=== PATIENT | male | born 1940 | race Caucasian/White ===

== ENCOUNTER 2016-12-13 17:46 | Emergency (ER) | payer MEDICARE, BC ==
[~2016-12-13] VITALS: Ht 170.2 cm; Wt 81.8 kg
[2016-12-13 17:53] VITALS: Ht 170.2 cm; Wt 81.8 kg
[2016-12-13] MEDS ORDERED: ALBUTEROL 0.5% (NEB) 2.5 MG/0.5 ML AMP INH STA ×2 (18:05→21:00)
[2016-12-13] MEDS ORDERED: SOD CHLORIDE 0.9% 1,000 ML IV STA (18:05)
[2016-12-13] MEDS ORDERED: METHYLPREDNISOLONE 125 MG INJ IV STA (18:05)
[2016-12-13] MEDS ORDERED: IPRATROPIUM (NEB) 0.5 MG/2.5 ML AMP INH STA (18:05)
[2016-12-13 19:14] LABS: ADD SCAN DIFF NO
[2016-12-13] MEDS ORDERED: ADV25050 INHALATION (19:17)
[2016-12-13] MEDS ORDERED: FURO20TA3 PO (19:17)
--- NOTE | 2016-12-13 19:20 | RADRPT ---
PROCEDURE: XR Chest. CLINICAL INDICATION: Asthma exacerbation. TECHNIQUE: Single frontal view of the chest was obtained COMPARISON: None FINDINGS: Cardiomegaly. Atherosclerotic calcifications in the thoracic aorta. Bilateral patchy lung base ate lectasis versus airspace disease with left pleural effusion. Left mid lung atelectasis. There is no pneumothorax. IMPRESSION: Cardiomegaly with mild failure and small left pleural effusion. RPTAT: [facility] Physician aSbino Date Time Electronically viewed and signed by Richard Beckwith Physician on 12/13/2016 19:20 RS/
[2016-12-13 19:22] LABS: BASOPHIL # 0.1 10^3/ul (0.0-0.1); BASOPHILS % 0.5 % (0.0-2.0); EOSINOPHILS # 0.3 10^3/ul (0.0-0.5); EOSINOPHILS % 2.4 % (0.0-7.0); HEMATOCRIT 43.2 % (42.0-52.0); HEMOGLOBIN 15.3 g/dl (14.0-18.0); LYMPHOCYTES # 2.5 10^3/ul (0.8-2.9); LYMPHOCYTES % 24.2 % (15.0-51.0); MEAN CORPUSCULAR HEMOGLOBIN 36.7 pg (29.0-33.0); MEAN CORPUSCULAR HGB CONC 35.4 g/dl (32.0-37.0); MEAN CORPUSCULAR VOLUME 103.6 fl (82.0-101.0); MONOCYTE # 0.9 10^3/ul (0.3-0.9); MONOCYTES % 8.8 % (0.0-11.0); NEUTROPHIL # 6.6 10^3/ul (1.6-7.5); NEUTROPHILS % 63.6 % (39.0-77.0); PLATELET COUNT 210 10^3/UL (140-415); RED BLOOD COUNT 4.17 10^6/ul (4.70-6.10); RED CELL DISTRIBUTION WIDTH 15.1 % (11.5-14.5); WHITE BLOOD COUNT 10.4 10^3/ul (4.8-10.8)
[2016-12-13 19:35] LABS: INR 1.51; PROTIME 18.3 Sec (12.2-14.2); PT RATIO 1.4
[2016-12-13 19:36] LABS: PARTIAL THROMBOPLASTIN TIME 37.6 Sec (25.0-35.0)
[2016-12-13 20:09] LABS: CHLORIDE 109 mmol/L (97-110)
[2016-12-13 20:10] LABS: ALBUMIN 2.5 g/dl (3.3-4.9); SODIUM 146 mmol/L (135-144)
[2016-12-13 20:11] LABS: POTASSIUM 4.3 mmol/L (3.5-5.1)
[2016-12-13 20:13] LABS: ALANINE AMINOTRANSFERASE 68 IU/L (13-69); ALKALINE PHOSPHATASE 136 IU/L (42-121); ANION GAP 13 (8-16); ASPARTATE AMINO TRANSFERASE 157 IU/L (15-46); BILIRUBIN,INDIRECT 0.8 mg/dl (0-1.1); BILIRUBIN,TOTAL 0.8 mg/dl (0.2-1.3); BLOOD UREA NITROGEN 15 mg/dl (7-20); CARBON DIOXIDE 28 mmol/L (21-31); CREATININE 0.61 mg/dl (0.61-1.24); GLUCOSE 98 mg/dl (70-220); TOTAL PROTEIN 6.4 g/dl (6.1-8.1)
[2016-12-13 20:30] LABS: TROPONIN-I < 0.012 ng/ml (0.00-0.12)
[2016-12-13 20:42] LABS: AADO2 Arterial 72.4 mmHg (7.0-24.0); Allen Test ACCEPTAB; Arterial Base Excess -2.5 mmol/L (-3.0-3); Arterial COHb 0.5 % (0.0-3.0); Arterial Fraction of Oxyhgb 92.6 % (93.0-99.0); Arterial HCO3 22.6 mmol/L (22.0-26.0); Arterial MetHb 0.5 % (0.0-1.5); Arterial Total Hemglobin 14.4 g/dl (12.0-18.0); MODE NASAL CANNULA
--- NOTE | 2016-12-13 22:04 | RADRPT ---
PROCEDURE: CT Head without contrast. CLINICAL INDICATION: Headaches TECHNIQUE: The study was performed utilizing a GE 64-slice multidetector CT scanner. Direct spiral axial CT images of the brain were obtained from the vertex to the skull base without contrast. The CTDI vol is 39.15 mGy and the DLP is 634.23 mGy-cm. The images were reviewed on a PACS workstation. COMPARISON: No prior studies are available for comparison. FINDINGS: Mild to moderate diffuse cerebral atrophy is seen with a compensatory ventricular enlargement. The leroy-white matter differentiation is maintained. No intra or extra-axial fluid collection or mass e ffect or shift in the midline structures is seen. The visualized paranasal sinuses, mastoid air hugh ls, orbits, and calvarium are unremarkable. IMPRESSION: 1. No acute intracranial pathology. 2. Mild to moderate diffuse cerebral volume loss. RPTAT: [facility] Physician Bryn Date Time Electronically viewed and signed by Physician Bryn on 12/13/2016 22:03 /
[2016-12-13 22:23] VITALS: BP 135/67; PULSE 110; RESP 22; TEMP 98.1
--- NOTE | 2016-12-13 22:39 | ERD ---
ER Documentation Chief Complaint Date/Time DATE: 12/13/16 TIME: 22:31 Chief Complaint BROUGHT IN VIA EMS DUE TO MULTIPLE MECHANICAL FALLS FOR THE LAST 3 DAYS HPI 76-year-old man brought in by EMS from home for recent trip and falls. Family members were later at the bedside and the patient himself states that for the last 3 days he has been falling more than usual, and has had difficulty getting up after the fall. He states he has been chronically losing strength both in his upper and lower extremities bilaterally. Patient does not usually leave the house and normally ambulates with assistance using either a cane or walker. 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 He denies recent head or neck injury, no paresthesias , no loss of bowel or bladder control, no chest pain, no headache or blurry vision. Patient also has a history of lung cancer and is post left upper lung surgery and is scheduled to see his contamination consultant tomorrow. He has a history of chronic obstructive pulmonary disease and uses bronchodilators daily around- the-clock. Patient denies dysphagia or slurred speech. ROS All systems reviewed and are negative except as per history of present illness. Medications Home Meds Reported Medications Salmeterol Xinaf/Fluticasone* (Advair*) 250-50 Diskus Inhaler, 1 INH INHALATION BID, #1 INHALER 12/13/16 Furosemide* (Furosemide*) 20 Mg Tablet, 20 MG PO DAILY, #60 TAB 12/13/16 Allergies Allergies: Coded Allergies: No Known Allergy (Unverified , 12/13/16) PMhx/Soc COPD, lung cancer, arthritis, dementia, chronic gait ataxia, hypertension, lumbar spine and disc disease Medical and Surgical Hx: pt denies Surgical Hx History of Surgery: No Anesthesia Reaction: No Hx Neurological Disorder: No Hx Respiratory Disorders: Yes (ASTHMA) Hx Cardiac Disorders: Yes (BORDERLINE HTN) Hx Psychiatric Problems: No Hx Miscellaneous Medical Probl: No Hx Alcohol Use: Yes Hx Substance Use: No Hx Tobacco Use: No Smoking Status: Former smoker FmHx Family History: No diabetes Physical Exam Vitals Vital Signs Date Time Temp Pulse Resp B/P Pulse Ox O2 Delivery O2 Flow Rate FiO2 12/13/16 22:23 98.1 110 22 135/67 96 Nasal Cannula 2.0 12/13/16 21:08 98.2 108 22 133/80 97 Nasal Cannula 2.0 12/13/16 19:00 Simple Mask 8 12/13/16 18:45 106 18 97 Nasal Cannula 2.0 12/13/16 18:35 98.5 112 25 131/73 100 Mask 8.0 12/13/16 17:53 98.3 79 18 145/79 94 Physical Exam GENERAL: Well-developed, dyspneic, dehydrated HEENT: Dry mucous membranes, pink conjunctiva, no cervical spine tenderness or step-off deformities, no goiter, no jaundice or icterus, extraocular movements intact without pain. No submandibular induration, and no pharyngeal erythema NEURO: Alert and oriented 3, cranial nerves II through XII intact bilaterally, pupils equal round reactive to light, no focal deficits or facial asymmetry, sensation intact distally Strength 5/5 in upper and lower extremities bilaterally CARDIAC: Regular rate and rhythm, no murmurs rubs or gallops LUNGS: Scattered wheezes bilaterally, no crackles or stridor ABDOMEN: Soft nontender, no guarding, no rigidity, no rebound, no psoas sign no obturator sign. Normoactive bowel sounds SKIN: Warm and dry to touch, no abrasions, contusions, or hematomas, no lacerations, no ecchymosis, no target lesions, and without ulcers EXTREMITIES: No clubbing cyanosis or edema, calves are bilaterally symmetrical, no Homans sign, no popliteal cord sign. Distal pulses equal and bilateral PSYCH: Normal affect without agitation or irritability Result Diagram: 12/13/16 1840 12/13/161944 Results 24 hrs Laboratory Tests Test 12/13/16 18:05 12/13/16 18:40 12/13/16 19:45 12/13/16 19:50 Arterial Blood HCO3 22.6mmol/L Arterial Blood Base Excess -2.5mmol/L Arterial Blood Oxygen Saturation 93.5mmHG Raymond Test ACCEPTAB Arterial Blood Gas Puncture Site Left Radial Arterial Blood Carboxyhemoglobin 0.5% Arterial Blood Date Drawn 12/13/2016 8:30:47 PM Arterial Blood Methemoglobin 0.5% Arterial Blood pCO2 (Temp correct) 40.3mmhg Arterial Blood pH (Temp corrected) 7.367 Arterial Blood pO2 (Temp corrected) 72.5mmHG Blood Gas A-a O2 Differential 72.4mmHg Blood Gas Actual Respiration Rate 20 Blood Gas Modality NASAL CANNULA Blood Gas Notified Time 12/13/2016 8:41:56 PM Blood Gas Notified Whom MG Blood Gas Specimen Source Blood arterial Blood Gas Temperature 37.0C FiO2 27.0% Oxyhemoglobin Percent 92.6% Total Hemoglobin 14.4g/dl Activated Partial Thromboplast Time 37.6Sec Basophils # 0.110^3/ul Basophils % 0.5% Eosinophils # 0.310^3/ul Eosinophils % 2.4% Hematocrit 43.2% Hemoglobin 15.3g/dl INR International Normalized Ratio 1.51 Lymphocytes # 2.510^3/ul Lymphocytes % 24.2% Mean Corpuscular Hemoglobin 36.7pg Mean Corpuscular Hemoglobin Concent 35.4g/dl Mean Corpuscular Volume 103.6fl Mean Platelet Volume 9.0fl Monocytes # 0.910^3/ul Monocytes % 8.8% Neutrophils # 6.610^3/ul Neutrophils % 63.6% Nucleated Red Blood Cells # 0.010^3/ul Nucleated Red Blood Cells % 0.0/100WBC Platelet Count 85043^3/UL Prothrombin Time 18.3Sec Prothrombin Time Ratio 1.4 Red Blood Count 4.1710^6/ul Red Cell Distribution Width 15.1% White Blood Count 10.410^3/ul Alanine Aminotransferase (ALT/SGPT) 68IU/L Albumin 2.5g/dl Alkaline Phosphatase 136IU/L Anion Gap 13 Aspartate Amino Transf (AST/SGOT) 157IU/L Blood Urea Nitrogen 15mg/dl Calcium Level 10.0mg/dl Carbon Dioxide Level 28mmol/L Chloride Level 109mmol/L Creatinine 0.61mg/dl Direct Bilirubin 0.00mg/dl Glucose Level 98mg/dl Indirect Bilirubin 0.8mg/dl Lipase 203U/L Potassium Level 4.3mmol/L Sodium Level 146mmol/L Total Bilirubin 0.8mg/dl Total Protein 6.4g/dl Troponin I < 0.012ng/ml B-Type Natriuretic Peptide 173PG/ML Current Medications Medications (Trade) Dose Ordered Sig/Marie Route PRN Reason Start Time Stop Time Status Last Admin Dose Admin Sodium Chloride (NS) 1,000 ml @ 1,000 mls/hr Q1H STAT IV 12/13/16 18:05 3/6/17 19:04 DC 12/13/16 19:02 Albuterol (Proventil 0.5% (Neb)) 10 mg ONCE STAT INH 12/13/16 18:05 12/13/16 18:08 DC 12/13/16 18:44 Ipratropium [place] (Atrovent 0.02% (Neb)) 1 mg ONCE STAT INH 12/13/16 18:05 12/13/16 18:08 DC 12/13/16 18:44 Methylprednisolone Sodium Succinate (Solu-Medrol) 125 mg ONCE STAT IV 12/13/16 18:05 12/13/16 18:08 DC 12/13/16 19:02 Albuterol (Proventil 0.5% (Neb)) 10 mg ONCE STAT INH 12/13/16 21:00 12/13/16 21:01 DC Clonidine (Catapres) 0.1 mg ONCE ONCE PO 12/13/16 21:30 12/13/16 21:31 DC Procedures/MDM IV line was established patient was placed on hospital monitor rhythm strip revealed a tachycardia at about 110 bpm with upright P and T waves. Patient was afebrile. I administered 1 L normal saline intravenously for dehydration as well as albuterol 10 mg via nebulizer, ipratropium 1 mg via nebulizer, methylprednisolone 125 mg IV 1. Patient did require another dose of albuterol 10 mg via nebulizer for continued wheezing although after the second dose oxygen saturation improved within normal limits on room air and respiratory rate improved to 18 breaths per minute and normal. CT scan of the brain was performed and was negative for acute bleed mass or shift. One view chest x-ray performed, read by me revealed mild pleural effusions at the bases and atelectatic changes bilaterally, no acute infiltrates, no pneumothorax. CBC and electrolytes are normal, liver function tests are normal, troponin was negative, BNP was low. ABG was performed revealing a pH of 7.37, PCO2 40, PaO2 73. Normal. I spoke to the patient at length at the bedside and his family members regarding the patient's symptoms I offered admission although they preferred outpatient management and follow-up with his contamination consultant tomorrow and his PMD later this week. I recommended outpatient rehab as well as home strength training exercises and increased use of his walker to prevent falls and hip fracture. Differential diagnoses considered, included but not limited to acute coronary syndrome, pulmonary embolism, aortic dissection, abdominal aortic aneurysm, sepsis, stroke, meningitis, encephalitis, pneumonia, appendicitis, cholecystitis , bowel obstruction, pyelonephritis, nephrolithiasis, cystitis, as well as metabolic, hematologic, and electrolyte abnormalities. As well as abscess, cellulitis, fractures, and dislocations. Patient feels much better at this time, and vital signs are normal, symptoms have improved. I did give strict instructions to return to the ED if symptoms continue or worsen, patient will otherwise follow-up with primary care physician. Patient understood instructions and agreed to plan. Departure Diagnosis: Primary Impression: Fall Encounter type: initial encounter Qualified Code: W19.XXXA - Fall, initial encounter Additional Impressions: COPD (chronic obstructive pulmonary disease) COPD type: COPD with acute exacerbation Qualified Code: J44.1 - Chronic obstructive pulmonary disease with acute exacerbation Dehydration Lung cancer Laterality: left Lung location: upper lobe of lung Qualified Code: C34.12 - Malignant neoplasm of upper lobe of left lung Condition: Good Patient Instructions: Fall Prevention JANA GREEN MD Dec 13, 2016 22:39
== END 2016-12-13 22:35 | disposition home or self-care (01) ==
LOC: E/R 17:46
DX: J44.1 Chronic obstructive pulmonary disease with (acute) exacerbation (principal); E86.0 Dehydration; C34.12 Malignant neoplasm of upper lobe, left bronchus or lung; I10 Essential (primary) hypertension; W01.0XXA Fall on same level from slipping, tripping and stumbling without subsequent striking against object, initial encounter; Y92.9 Unspecified place or not applicable; Z87.891 Personal history of nicotine dependence
CPT/HCPCS: 36600; 70450; 71010; 80048; 80076; 82803; 83690; 83880; 84484; 85025; 85610; 85730; 87400; 93005; 94644; 96374; 99285; J2930; J7030